=== PATIENT | female | born 2000 ===

== ENCOUNTER 2022-12-11 10:01 | Emergency (ER) | payer SELFPAY ==
[2022-12-11] MEDS ORDERED: Atropine/Diphenoxylate 0.025-2.5 MG Tab PO ONE (10:49)
== END 2022-12-11 11:06 | disposition home or self-care (01) ==
LOC: DL.ED 10:01
DX: R19.7 Diarrhea, unspecified (principal)
CPT/HCPCS: 82272; 87045; 87046; 87324; 87493; 87899; 99283; 99284

== ENCOUNTER 2023-12-11 15:32 | Emergency (ER) | payer OTHER ==
[2023-12-11] MEDS: Take Home: predniSONE 20 MG, 4 Tab Pack PO ONE (18:08)
[2023-12-11] MEDS: predniSONE 20 MG Tab PO ONE (18:08)
== END 2023-12-11 18:17 | disposition home or self-care (01) ==
LOC: DL.ED 15:32
DX: J02.9 Acute pharyngitis, unspecified (principal)
CPT/HCPCS: 87081; 87430; 87635; 87804; 99283; A9270; J7512; U0002